=== PATIENT | female | born 1985 | race African-American/Black ===

== ENCOUNTER 2020-05-21 12:29 | Emergency (ER) | payer SELFPAY ==
[~2020-05-21] VITALS: Ht 162.6 cm; Wt 116.0 kg
[2020-05-21] MEDS ORDERED: ONDANSETRON HCL 4MG/2ML INJ IV STA (13:35)
[2020-05-21 15:29] LABS: BASOPHILS % 1.1 % (0.0-2.0); EOSINOPHILS % 1.5 % (0.0-5.0); HEMATOCRIT. 31.6 % (36.0-48.0); HEMOGLOBIN. 10.2 g/dL (12.0-16.0); LYMPHOCYTES % 29.1 % (20.0-50.0); MEAN CORPUSCULAR HEMOGLOBIN 24.3 pg (28.0-32.0); MEAN CORPUSCULAR VOLUME 74.9 fL (81.0-99.0); MEAN PLATELET VOLUME 7.4 fl (7.4-10.4); MONOCYTES % 5.8 % (2.0-8.0); NEUTROPHILS % 62.5 % (40.0-76.0); PLATELET 330 x1000/uL (130-400); RED BLOOD CELL COUNT 4.22 mill/uL (4.2-5.4); RED CELL DISTRIBUTION WIDTH 17.5 % (11.6-14.6)
[2020-05-21 15:33] LABS: CHLORIDE 106 mEq/L (98-107)
[2020-05-21 15:37] LABS: ETHANOL BLOOD < 10 mg/dL
[2020-05-21 15:39] LABS: CLARITY URINE CLEAR (CLEAR); COLOR URINE YELLOW (YELLOW); KETONES URINE NEGATIVE (NEGATIVE); LEUKOCYTE ESTERASE URINE NEGATIVE (NEGATIVE); NITRITE URINE NEGATIVE (NEGATIVE); OCCULT BLOOD URINE NEGATIVE (NEGATIVE); PROTEIN URINE NEGATIVE (NEGATIVE); SPECIFIC GRAVITY URINE 1.004 (1.005-1.030); UROBILINOGEN URINE 0.2 E.U./dL (0.2-1.0)
[2020-05-21 15:44] VITALS: BP 145/85
[2020-05-21 16:02] LABS: *COCAINE SCREEN URINE NEGATIVE (NEGATIVE)
[2020-05-21 16:03] LABS: *AMPHETAMINES SCREEN URINE NEGATIVE (NEGATIVE); *BARBITURATES SCREEN URINE NEGATIVE (NEGATIVE); *BENZODIAZEPINES SCREEN URINE NEGATIVE (NEGATIVE); METHADONE URINE SCREEN NEGATIVE (NEGATIVE); OPIATES URINE SCREEN NEGATIVE (NEGATIVE); PHENCYCLIDINE URINE SCREEN NEGATIVE (NEGATIVE)
[2020-05-21 16:04] LABS: CANNABINOID URINE SCREEN NEGATIVE (NEGATIVE)
== END 2020-05-21 16:28 | disposition home or self-care (01) ==
LOC: ER 12:29
DX: R29.818 Other symptoms and signs involving the nervous system (principal); E66.9 Obesity, unspecified; Z68.41 Body mass index [BMI] 40.0-44.9, adult; Z88.0 Allergy status to penicillin
CPT/HCPCS: 36415; 71045; 80053; 80305; 80320; 81003; 81025; 84443; 84484; 85025; 93005; 99285; G0480

== ENCOUNTER 2020-10-18 00:16 | Emergency (ER) | payer MEDICAID ==
[~2020-10-18] VITALS: Ht 162.6 cm; Wt 114.0 kg
[2020-10-18] MEDS ORDERED: IBUPROFEN 600MG TABLET PO STA (00:44)
[2020-10-18 02:15] VITALS: BP 127/89
[2020-10-18 02:26] LABS: CLARITY URINE CLEAR (CLEAR); COLOR URINE ORANGE (YELLOW); KETONES URINE NEGATIVE (NEGATIVE); LEUKOCYTE ESTERASE URINE 1+ (NEGATIVE); NITRITE URINE NEGATIVE (NEGATIVE); OCCULT BLOOD URINE 3+ (NEGATIVE); PH URINE 5.5 (4.5-8.0); PROTEIN URINE TRACE (NEGATIVE); SPECIFIC GRAVITY URINE 1.006 (1.005-1.030); UROBILINOGEN URINE 0.2 E.U./dL (0.2-1.0)
[2020-10-18] MEDS ORDERED: NAPR-681 PO (02:39)
[2020-10-18] MEDS ORDERED: SULF1TAB48 PO (02:39)
== END 2020-10-18 02:45 | disposition home or self-care (01) ==
LOC: ER 00:16
DX: R30.0 Dysuria (principal); N39.0 Urinary tract infection, site not specified; R60.9 Edema, unspecified; Z88.0 Allergy status to penicillin
CPT/HCPCS: 81003; 81025; 82962; 99283

== ENCOUNTER 2021-11-01 18:08 | Emergency (ER) | payer SELFPAY ==
[~2021-11-01] VITALS: Ht 170.2 cm; Wt 113.0 kg
[~2021-11-01 18:08] MED LIST: NAPR-681 PO; SULF1TAB48 PO
[2021-11-01] MEDS ORDERED: IBUPROFEN 600MG TABLET PO STA (19:08)
[2021-11-01 20:55] LABS: HEMATOCRIT. 28.3 % (36.0-48.0); HEMOGLOBIN. 8.5 g/dL (12.0-16.0); MEAN CORPUSCULAR HEMOGLOBIN 19.7 pg (28.0-32.0); MEAN CORPUSCULAR VOLUME 66.1 fL (81.0-99.0); MEAN PLATELET VOLUME 7.1 fl (7.4-10.4); PLATELET 406 x1000/uL (130-400); RED BLOOD CELL COUNT 4.29 mill/uL (4.2-5.4)
[2021-11-01 20:59] LABS: CHLORIDE 105 mEq/L (98-107)
[2021-11-01 21:10] LABS: ETHANOL BLOOD < 10 mg/dL
[2021-11-01 21:45] LABS: PLATELET ESTIMATE SLIGHTLY INCREASED
[2021-11-01] MEDS ORDERED: ONDANSETRON 4MG ODT PO ONE (21:45)
[2021-11-01 22:03] LABS: HCG SCREEN NEGATIVE
[2021-11-01 22:30] VITALS: BP 105/50
[2021-11-02 01:56] LABS: CLARITY URINE CLEAR (CLEAR); COLOR URINE YELLOW (YELLOW); KETONES URINE TRACE (NEGATIVE); LEUKOCYTE ESTERASE URINE NEGATIVE (NEGATIVE); NITRITE URINE NEGATIVE (NEGATIVE); OCCULT BLOOD URINE TRACE (NEGATIVE); PH URINE 5.5 (4.5-8.0); PROTEIN URINE TRACE (NEGATIVE); SPECIFIC GRAVITY URINE 1.022 (1.005-1.030)
[2021-11-02 02:23] LABS: *AMPHETAMINES SCREEN URINE NEGATIVE (NEGATIVE); *BARBITURATES SCREEN URINE NEGATIVE (NEGATIVE); *BENZODIAZEPINES SCREEN URINE NEGATIVE (NEGATIVE); *COCAINE SCREEN URINE NEGATIVE (NEGATIVE); METHADONE URINE SCREEN NEGATIVE (NEGATIVE); OPIATES URINE SCREEN NEGATIVE (NEGATIVE); PHENCYCLIDINE URINE SCREEN NEGATIVE (NEGATIVE)
[2021-11-02 02:42] LABS: CANNABINOID URINE SCREEN PRESUMTIVE POSITIVE (NEGATIVE)
== END 2021-11-02 04:14 | disposition home or self-care (01) ==
LOC: ER 18:08
DX: R10.30 Lower abdominal pain, unspecified (principal); Z88.0 Allergy status to penicillin; R11.0 Nausea
CPT/HCPCS: 36415; 74176; 80053; 80305; 80307; 80320; 80329; 81003; 84703; 85025; 99291; Q0162; G0480